=== PATIENT | female | born 1975 | race Caucasian/White ===

== ENCOUNTER 2017-01-14 14:34 | Inpatient (IN) | payer OTHER ==
[~2017-01-14] VITALS: Ht 157.5 cm; Wt 83.6 kg
[2017-01-14] MEDS ORDERED: GLUCOPHAGE XR500 MG PO (16:45)
[2017-01-14] MEDS ORDERED: LOSARTAN POTASS25 M1 (16:45)
[2017-01-14] MEDS ORDERED: TRULICITY0.75 MG/0. (16:45)
[2017-01-14 17:12] LABS: CALCIUM 8.9 mg/dL (8.5-10.1); CARBON DIOXIDE 20.8 mmol/L (21-32); CHLORIDE SERUM 107 mmol/L (98-107); CREATININE SERUM 0.8 mg/dL (0.6-1.0); GFR1 > 60 mL/min; GLUCOSE SERUM 98 mg/dL (74-106); POTASSIUM SERUM 3.3 mmol/L (3.5-5.1); SODIUM SERUM 140 mmol/L (136-145)
[2017-01-14 17:16] LABS: BASOPHIL % 0.1 % (0-2); PLATELET COUNT 277 x10^3mcL (130-400); RED CELL DISTRIBUTION WIDTH 13.8 % (11.5-14.5)
[2017-01-14 17:18] LABS: ALKALINE PHOSPHATASE 94 U/L (46-116); ALT/SGPT 54 U/L (14-59); AST/SGOT 31 U/L (15-37); BILIRUBIN TOTAL 0.3 mg/dL (0.20-1.00); TOTAL PROTEIN, SERUM 6.6 g/dL (6.4-8.2)
[2017-01-14 17:19] LABS: ALBUMIN 2.5 g/dL (3.4-5.0)
[2017-01-14 17:57] LABS: microscopic required? YES; urine erythrocyte 1+ (NEGATIVE)
[2017-01-14 20:14] LABS: MAGNESIUM 1.7 mg/dL (1.8-2.4); PHOSPHOROUS 4.2 mg/dL (2.5-4.9)
[2017-01-14 20:15] LABS: CHOLESTEROL/HDL RATIO 3.9
[2017-01-14 20:19] LABS: T3 TOTAL 1.57 ng/mL
[2017-01-14 20:21] LABS: FREE T4 1.11 ng/dL (0.76-1.46); FREE THYROXINE INDEX 3.5 ug/dL (1.4-4.5); T4(THYROXINE) 12.2 ug/dL (4.7-13.3)
[2017-01-14 20:31] VITALS: BP 161/104
[2017-01-15 06:18] LABS: RED BLOOD CELLS 2.68 M/mm3 (4.10-5.10)
[2017-01-15 06:23] LABS: IRON 41 ug/dL (50-170); TOTAL IRON BINDING CAPACITY 364 ug/dL (250-450)
[2017-01-15 06:24] LABS: CALCIUM 8.3 mg/dL (8.5-10.1); CARBON DIOXIDE 20.8 mmol/L (21-32); CHLORIDE SERUM 109 mmol/L (98-107); CREATININE SERUM 0.7 mg/dL (0.6-1.0); GFR1 > 60 mL/min; GLUCOSE SERUM 98 mg/dL (74-106); PHOSPHOROUS 4.4 mg/dL (2.5-4.9); POTASSIUM SERUM 4.1 mmol/L (3.5-5.1); SODIUM SERUM 142 mmol/L (136-145)
[2017-01-15 06:35] VITALS: BP 114/78
[2017-01-15 06:59] LABS: BASOPHIL % 0.1 % (0-2); PLATELET COUNT 284 x10^3mcL (130-400); RED CELL DISTRIBUTION WIDTH 13.9 % (11.5-14.5)
[2017-01-15 09:00] VITALS: BP 139/85
[2017-01-15 10:04] VITALS: BP 147/91
[2017-01-15 13:49] VITALS: BP 129/84
[2017-01-15 18:18] VITALS: BP 143/95
[2017-01-15 22:11] VITALS: BP 160/91
[2017-01-16 06:03] VITALS: BP 142/94
[2017-01-16 07:27] LABS: BASOPHIL % 0.4 % (0-2); PLATELET COUNT 330 x10^3mcL (130-400)
[2017-01-16 07:46] LABS: CALCIUM 8.6 mg/dL (8.5-10.1); CARBON DIOXIDE 23.4 mmol/L (21-32); CHLORIDE SERUM 106 mmol/L (98-107); CREATININE SERUM 0.8 mg/dL (0.6-1.0); GFR1 > 60 mL/min; GLUCOSE SERUM 91 mg/dL (74-106); MAGNESIUM 1.7 mg/dL (1.8-2.4); PHOSPHOROUS 4.3 mg/dL (2.5-4.9); POTASSIUM SERUM 3.8 mmol/L (3.5-5.1); SODIUM SERUM 140 mmol/L (136-145)
[2017-01-16 09:16] VITALS: BP 149/86
[2017-01-16] MEDS ORDERED: APAP/HYDROCODON1 T13 PO (11:42)
[2017-01-16] MEDS ORDERED: CIPROFLOXACIN500 MG PO (11:43)
[2017-01-16] MEDS ORDERED: DOC-Q-LACE100 MG PO (11:44)
[2017-01-16 11:52] VITALS: BP 149/86
== END 2017-01-16 12:16 | disposition home or self-care (01) | DRG 561 ==
LOC: ED 14:34 → DU 19:42
PROVIDERS: Emergency Medicine; ADMIT Family Medicine
DX: O16.5 Unspecified maternal hypertension, complicating the puerperium (principal); J96.01 Acute respiratory failure with hypoxia; I50.43 Acute on chronic combined systolic (congestive) and diastolic (congestive) heart failure; O90.3 Peripartum cardiomyopathy; J45.901 Unspecified asthma with (acute) exacerbation; E83.42 Hypomagnesemia; Z68.33 Body mass index [BMI] 33.0-33.9, adult; E87.6 Hypokalemia; E78.5 Hyperlipidemia, unspecified; O90.81 Anemia of the puerperium; D64.9 Anemia, unspecified; O25.3 Malnutrition in the puerperium; J81.0 Acute pulmonary edema; O99.53 Diseases of the respiratory system complicating the puerperium; O90.89 Other complications of the puerperium, not elsewhere classified; I11.0 Hypertensive heart disease with heart failure
CPT/HCPCS: 36600; 83880; 84439; 94150; J1940; J2270; J2405; J3475; J7030; J7613; J7620; J7626; Q0092; Q9967

== ENCOUNTER 2017-08-22 13:13 | Emergency (ER) | payer OTHER ==
[~2017-08-22] VITALS: Ht 160 cm; Wt 75.7 kg
[~2017-08-22 13:13] MED LIST: APAP/HYDROCODON1 T13 PO; CIPROFLOXACIN500 MG PO; DOC-Q-LACE100 MG PO; GLUCOPHAGE XR500 MG PO; LOSARTAN POTASS25 M1; TRULICITY0.75 MG/0.
[2017-08-22 13:33] VITALS: BP 120/84; Ht 160 cm; Wt 75.7 kg
== END 2017-08-22 15:31 | disposition home or self-care (01) ==
LOC: ED 13:13
DX: N39.0 Urinary tract infection, site not specified (principal); I10 Essential (primary) hypertension
CPT/HCPCS: J1885

== ENCOUNTER 2019-09-18 09:28 | Emergency (ER) | payer OTHER ==
[~2019-09-18] VITALS: Ht 160 cm; Wt 67.1 kg
[2019-09-18 09:31] VITALS: Ht 160 cm; Wt 67.1 kg
[2019-09-18 11:00] LABS: microscopic required? YES; urine erythrocyte TRACE (NEGATIVE)
[2019-09-18 12:07] VITALS: BP 161/98
== END 2019-09-18 12:07 | disposition home or self-care (01) ==
LOC: ED 09:28
PROVIDERS: Emergency Medicine
DX: N39.0 Urinary tract infection, site not specified (principal); B36.0 Pityriasis versicolor; I10 Essential (primary) hypertension; F17.210 Nicotine dependence, cigarettes, uncomplicated
CPT/HCPCS: 82962; 99406; Q0092

== ENCOUNTER 2019-12-28 14:07 | Emergency (ER) | payer OTHER, SELFPAY ==
[~2019-12-28] VITALS: Ht 157.5 cm; Wt 63.0 kg
[2019-12-28 14:35] VITALS: Ht 157.5 cm; Wt 63.0 kg
[2019-12-28 15:58] VITALS: BP 110/65
== END 2019-12-28 15:58 | disposition home or self-care (01) ==
LOC: ED 14:07
DX: N39.0 Urinary tract infection, site not specified (principal); B34.9 Viral infection, unspecified; Z20.828 Contact with and (suspected) exposure to other viral communicable diseases; I10 Essential (primary) hypertension
CPT/HCPCS: U0003-CS